=== PATIENT | male | born 2005 | race Caucasian/White ===

== ENCOUNTER 2024-10-14 18:59 | Inpatient (IN) | payer OTHER ==
[2024-10-14] MEDS ORDERED: DEXAMETHASONE SOD PHOSPHATE 10 MG/1 ML VIAL ONE (20:02)
[2024-10-14] MEDS ORDERED: ACETAMINOPHEN INJECTION 100 ML ONE ×2 (20:02→23:48)
[2024-10-14] MEDS: ACETAMINOPHEN 1000 MG/100 ML BAG IVPB ONE (20:08)
[2024-10-14] MEDS: SODIUM CHLORIDE 0.9% 500 ML INFUS.BAG IV ONE (20:08)
[2024-10-14] MEDS: DEXAMETHASONE SOD PHOSPHATE 10 MG/1 ML VIAL IVPUSH ONE (20:09)
[2024-10-14] MEDS: SODIUM CHLORIDE 1,000 ML IV STA (20:09)
[2024-10-14 20:26] LABS: VENOUS BASE EXCESS -4.8 mmol/L (-2-2); VENOUS O2 SATURATION 92.1 % (70-80); VENOUS PCO2 31.9 mmHg (38-52); VENOUS PH 7.388 (7.310-7.410)
[2024-10-14 20:28] LABS: BASO % 0.6 % (0-2.0); HEMATOCRIT 47.8 % (35.4-49); HEMOGLOBIN 16.6 GM/dL (11.7-16.9); LYMPH % 2.8 % (8-40); MCH 32.3 pg (25.7-33.7); MCHC 34.7 g/dl (32.0-35.9); MEAN PLT VOLUME 8.5 fl (7.5-11.1); MONO % 2.9 % (3.8-10.2); NEUT % 93.7 % (42.8-82.8); PLATELET COUNT 138 10^3/uL (134-434); RBC 5.13 M/mm3 (4.00-5.60); RDW 13.3 % (11.9-15.9); WHITE BLOOD COUNT 5.4 K/mm3 (4.0-10.0)
[2024-10-14 20:46] LABS: POTASSIUM 3.3 mmol/L (3.5-5.1)
[2024-10-14 20:49] LABS: ALBUMIN 3.7 g/dl (3.4-5.0); CALCIUM 8.1 mg/dL (8.5-10.1)
[2024-10-14 20:50] LABS: BLOOD UREA NITROGEN 19.1 mg/dL (7-18)
[2024-10-14 20:53] LABS: CREATININE 1.2 mg/dL (0.55-1.3)
[2024-10-14 20:54] LABS: BILIRUBIN,TOTAL 0.7 mg/dL (0.2-1); TOT PROT 7.4 g/dl (6.4-8.2)
[2024-10-14 20:58] LABS: LACTIC ACID 2.7 mmol/L (0.4-2.0)
[2024-10-14] MEDS ORDERED: CEFTRIAXONE 1 G/50 ML PREMIX 50 ML IVPB ONE (21:04)
[2024-10-14] MEDS ORDERED: AZITHROMYCIN IVPB 500 MG/250 ML BAG IVPB ONE (21:04)
[2024-10-14] MEDS: CEFTRIAXONE 1,000 MG in DEXTROSE 5%-WATER - 50 ML IVPB ONE (21:17)
[2024-10-14 21:31] LABS: ANISOCYTOSIS 1+; MACROCYTOSIS 0
[2024-10-14] MEDS: AZITHROMYCIN IVPB 500 MG in DEXTROSE 5%-WATER - 250 ML IVPB ONE (21:48)
[2024-10-14] MEDS ORDERED: POTASSIUM CHLORIDE ORAL LIQUID 20 MEQ/15 ML ONE (21:51)
[2024-10-14] MEDS ORDERED: KETOROLAC TROMETHAMINE 15 MG/ML VIAL ONE (21:51)
[2024-10-14] MEDS ORDERED: OSELTAMIVIR PHOSPHATE 75 MG CAPSULE ONE (21:51)
[2024-10-14] MEDS ORDERED: MAGNESIUM SULFATE IN WATER 2 GM/50 ML IVPB IVPB ONE (21:52)
[2024-10-14] MEDS: KETOROLAC TROMETHAMINE 15 MG/ML VIAL IVPUSH ONE (22:00)
[2024-10-14] MEDS: OSELTAMIVIR PHOSPHATE 75 MG CAPSULE PO ONE (22:00)
[2024-10-14] MEDS: MAGNESIUM SULF 50% (8.12 MEQ/2 ML-1 GM VIAL) IVPB ONE (22:00)
[2024-10-14] MEDS: POTASSIUM CHLORIDE ORAL LIQUID 20 MEQ/15 ML PO ONE (22:00)
[2024-10-14] MEDS ORDERED: LIDOCAINE VISCOUS 2% ORAL/TOP 15 ML UNIT-DOSE CUP ONE (23:48)
[2024-10-15] MEDS: ACETAMINOPHEN 1000 MG/100 ML BAG IVPB ONE (00:01)
[2024-10-15] MEDS: LIDOCAINE VISCOUS 2% ORAL/TOP 15 ML UNIT-DOSE CUP MM ONE (00:01)
[2024-10-15 00:25] LABS: HIV INTERPRETATION NEGATIVE (NEGATIVE)
[2024-10-15 01:20] LABS: LACTIC ACID 2.4 mmol/L (0.4-2.0)
[2024-10-15] MEDS: ACETAMINOPHEN 1000 MG/100 ML BAG IVPB PRN (02:30)
[2024-10-15] MEDS: LIDOCAINE VISCOUS 2% ORAL/TOP 15 ML UNIT-DOSE CUP MM PRN (02:30)
[2024-10-15] MEDS: SODIUM CHLORIDE 1,000 ML IV SCH (02:30)
[2024-10-15] MEDS: VANCOMYCIN 1 GM PREMIX (F) 1 GM/200 ML BAG IVPB SCH (03:19)
[2024-10-15] MEDS: HYDROCORTISONE SOD SUCCINATE 100 MG/2 ML VIAL IVPB SCH (03:19)
[2024-10-15] MEDS: KETOROLAC TROMETHAMINE 15 MG/ML VIAL IVPUSH PRN (05:23)
[2024-10-15] MEDS: PIPERACILLIN/TAZOB 4.5 GM 4.5 GM in DEXTROSE 5%-WATER 100 ML IVPB SCH (05:26)
[2024-10-15 06:08] LABS: MAGNESIUM 2.1 mg/dL (1.8-2.4)
[2024-10-15 08:03] LABS: HEMATOCRIT 46.3 % (35.4-49); MCH 32.4 pg (25.7-33.7); MCHC 34.6 g/dl (32.0-35.9); MEAN CELL VOLUME 93.4 fl (80-96); MEAN PLT VOLUME 8.7 fl (7.5-11.1); PLATELET COUNT 103 10^3/uL (134-434); RBC 4.96 M/mm3 (4.00-5.60); RDW 13.1 % (11.9-15.9); WHITE BLOOD COUNT 3.8 K/mm3 (4.0-10.0)
[2024-10-15 08:11] LABS: POTASSIUM 3.8 mmol/L (3.5-5.1)
[2024-10-15 08:13] LABS: EPI CELLS 17 /uL (0-25.1); HYALINE CASTS 1 /uL (0-3.1); PH,URINE 5.5 (5.0-8.0); URINE APPEARANCE CLEAR; URINE BACTERIA 8 /uL (0-1359); URINE BILIRUBIN NEGATIVE (NEGATIVE); URINE COLOR YELLOW; URINE GLUCOSE (UA) TRACE (NEGATIVE); URINE KETONE TRACE (NEGATIVE); URINE LEUK ESTERASE NEGATIVE (NEGATIVE); URINE NITRITE NEGATIVE (NEGATIVE); URINE PROTEIN 2+ (NEGATIVE); URINE RBC 70 /uL (0-23.9); URINE UROBILINOGEN 0.2 mg/dL (0.2-1.0); URINE WBC 52 /uL (0-25.8)
[2024-10-15 08:15] LABS: BLOOD UREA NITROGEN 17.8 mg/dL (7-18); CALCIUM 7.4 mg/dL (8.5-10.1)
[2024-10-15 08:16] LABS: MAGNESIUM 2.4 mg/dL (1.8-2.4)
[2024-10-15 08:19] LABS: ALBUMIN 2.7 g/dl (3.4-5.0); CREATININE 1.1 mg/dL (0.55-1.3); PHOSPHOROUS 2.6 mg/dL (2.5-4.9)
[2024-10-15 08:20] LABS: BILIRUBIN,TOTAL 0.8 mg/dL (0.2-1); TOT PROT 5.6 g/dl (6.4-8.2)
[2024-10-15 08:21] LABS: LACTIC ACID 2.8 mmol/L (0.4-2.0)
[2024-10-15 08:31] LABS: ALBUMIN 2.7 g/dl (3.4-5.0)
[2024-10-15 08:35] LABS: BILIRUBIN,DIRECT 0.3 mg/dL (0.0-0.2); BILIRUBIN,TOTAL 0.9 mg/dL (0.2-1); TOT PROT 5.7 g/dl (6.4-8.2)
[2024-10-15 09:42] LABS: ANISOCYTOSIS 0; MACROCYTOSIS 0
[2024-10-15] MEDS: ENOXAPARIN NA (PORCINE) 40 MG/0.4 ML DISP.SYRIN SQ SCH (10:42)
[2024-10-15] MEDS: OSELTAMIVIR PHOSPHATE 75 MG CAPSULE PO SCH (10:44)
[2024-10-15] MEDS: PHENOL 177 ML SPRAY BOTTLE MM PRN (10:46)
[2024-10-15] MEDS: MUPIROCIN 2% TOPICAL OINTMENT FOR DECOLONIZATION NS SCH (10:46)
[2024-10-15] MEDS: ALBUTEROL SO4 2.5/IPRATROPIUM 0.5 INH SOL 3 ML VIAL.NEB. NEB SCH (15:50)
[2024-10-15] MEDS: methylPREDNISolone NA SUCC 40 MG/1 ML VIAL IVPUSH SCH (19:07)
[2024-10-15] MEDS: AZITHROMYCIN IVPB 500 MG/250 ML BAG IVPB SCH (20:34)
[2024-10-15] MEDS: CHLORHEXIDINE GLUCONATE 4% CLEANSER FOR DECOLONIZATION TP SCH (22:30)
[2024-10-16 08:30] LABS: HEMATOCRIT 38.5 % (35.4-49); HEMOGLOBIN 13.7 GM/dL (11.7-16.9); MCH 33.4 pg (25.7-33.7); MCHC 35.7 g/dl (32.0-35.9); MEAN CELL VOLUME 93.5 fl (80-96); MEAN PLT VOLUME 8.3 fl (7.5-11.1); PLATELET COUNT 96 10^3/uL (134-434); RBC 4.12 M/mm3 (4.00-5.60); RDW 13.6 % (11.9-15.9); WHITE BLOOD COUNT 9.3 K/mm3 (4.0-10.0)
[2024-10-16 08:41] LABS: POTASSIUM 4.1 mmol/L (3.5-5.1)
[2024-10-16 08:58] LABS: ALBUMIN 2.2 g/dl (3.4-5.0); CALCIUM 7.8 mg/dL (8.5-10.1)
[2024-10-16 08:59] LABS: BILIRUBIN,TOTAL 0.7 mg/dL (0.2-1); BLOOD UREA NITROGEN 15.8 mg/dL (7-18); MAGNESIUM 2.6 mg/dL (1.8-2.4); TOT PROT 5.2 g/dl (6.4-8.2)
[2024-10-16 09:02] LABS: CREATININE 0.9 mg/dL (0.55-1.3)
[2024-10-16] MEDS: KETOROLAC TROMETHAMINE 15 MG/ML VIAL IVPUSH PRN (09:25)
[2024-10-16] MEDS: ACETAMINOPHEN 1000 MG/100 ML BAG IVPB PRN (20:51)
[2024-10-16] MEDS: BENZOCAINE/MENTH/CETYLPYRD CL 1 EACH LOZENGE MM PRN (20:52)
[2024-10-16] MEDS: MELATONIN 5 MG TABLETS PO ONE (22:32)
[2024-10-17] MEDS: PIPERACILLIN/TAZOB 4.5 GM 4.5 GM/100 ML BAG IVPB SCH (01:03)
[2024-10-17] MEDS: guaiFENesin/D-METHORPHAN HB 10 ML UNIT-DOSE CUPS PO PRN (01:03)
[2024-10-17] MEDS: VANCOMYCIN 1 GM PREMIX (F) 1 GM/200 ML BAG IVPB SCH (02:39)
[2024-10-17 08:10] LABS: HEMOGLOBIN 12.3 GM/dL (11.7-16.9); MCH 31.8 pg (25.7-33.7); MCHC 33.2 g/dl (32.0-35.9); MEAN CELL VOLUME 95.8 fl (80-96); MEAN PLT VOLUME 8.1 fl (7.5-11.1); PLATELET COUNT 89 10^3/uL (134-434); RBC 3.86 M/mm3 (4.00-5.60); RDW 13.6 % (11.9-15.9); WHITE BLOOD COUNT 12.1 K/mm3 (4.0-10.0)
[2024-10-17 08:38] LABS: ALBUMIN 2.1 g/dl (3.4-5.0); CALCIUM 7.8 mg/dL (8.5-10.1)
[2024-10-17 08:40] LABS: MAGNESIUM 2.7 mg/dL (1.8-2.4)
[2024-10-17 08:42] LABS: BILIRUBIN,TOTAL 0.6 mg/dL (0.2-1); CREATININE 0.8 mg/dL (0.55-1.3); TOT PROT 5.3 g/dl (6.4-8.2)
[2024-10-17] MEDS: PANTOPRAZOLE 40 MG TABLET PO SCH (09:10)
[2024-10-17 09:26] LABS: ANISOCYTOSIS 0; MACROCYTOSIS 0
[2024-10-17] MEDS: DEXTROSE 5%-LACTATED RINGERS 1,000 ML IV SCH (14:33)
[2024-10-17] MEDS: MELATONIN 5 MG TABLETS PO PRN (21:32)
[2024-10-17] MEDS: FAMOTIDINE 10 MG TABLET PO ONE (21:32)
[2024-10-18 08:40] LABS: HEMATOCRIT 36.2 % (35.4-49); HEMOGLOBIN 12.4 GM/dL (11.7-16.9); MCH 32.3 pg (25.7-33.7); MCHC 34.4 g/dl (32.0-35.9); MEAN CELL VOLUME 93.9 fl (80-96); MEAN PLT VOLUME 8.4 fl (7.5-11.1); PLATELET COUNT 100 10^3/uL (134-434); RBC 3.85 M/mm3 (4.00-5.60); RDW 13.4 % (11.9-15.9); WHITE BLOOD COUNT 12.8 K/mm3 (4.0-10.0)
[2024-10-18 09:31] LABS: ALBUMIN 2.1 g/dl (3.4-5.0); BLOOD UREA NITROGEN 23.8 mg/dL (7-18); MAGNESIUM 2.5 mg/dL (1.8-2.4)
[2024-10-18 09:34] LABS: CREATININE 0.7 mg/dL (0.55-1.3)
[2024-10-18 09:35] LABS: BILIRUBIN,TOTAL 0.5 mg/dL (0.2-1); TOT PROT 5.4 g/dl (6.4-8.2)
[2024-10-18 09:36] LABS: ANISOCYTOSIS 0; MACROCYTOSIS 0
[2024-10-18] MEDS: MULTIVITAMINS (DAILY MVI) TABLET (FP) PO SCH (12:44)
[2024-10-19 07:27] LABS: HEMATOCRIT 37.1 % (35.4-49); HEMOGLOBIN 12.3 GM/dL (11.7-16.9); MCH 31.8 pg (25.7-33.7); MCHC 33.1 g/dl (32.0-35.9); MEAN CELL VOLUME 96.1 fl (80-96); MEAN PLT VOLUME 8.8 fl (7.5-11.1); PLATELET COUNT 137 10^3/uL (134-434); RBC 3.86 M/mm3 (4.00-5.60); RDW 13.8 % (11.9-15.9); WHITE BLOOD COUNT 11.2 K/mm3 (4.0-10.0)
[2024-10-19 07:49] LABS: BLOOD UREA NITROGEN 23.8 mg/dL (7-18)
[2024-10-19 07:51] LABS: CREATININE 0.7 mg/dL (0.55-1.3)
[2024-10-19 07:53] LABS: BILIRUBIN,TOTAL 0.5 mg/dL (0.2-1); TOT PROT 5.6 g/dl (6.4-8.2)
[2024-10-19 08:57] LABS: ANISOCYTOSIS 0; HELMET CELLS 0; HOWELL-JOLLY BODIES 0; MACROCYTOSIS 0; OVALOCYTE 0; ROULEAU 0; SICKELED CELLS 0; TARGET CELLS 0; TEAR DROP CELLS 0; TOXIC GRANULATION 0
[2024-10-19] MEDS ORDERED: PHENOL 177 ML SPRAY BOTTLE MM PRN (09:09)
[2024-10-19] MEDS: OSELTAMIVIR PHOSPHATE 75 MG CAPSULE PO SCH (10:19)
[2024-10-19] MEDS: ENOXAPARIN NA (PORCINE) 40 MG/0.4 ML DISP.SYRIN SQ SCH (10:41)
[2024-10-19] MEDS: PANTOPRAZOLE 40 MG TABLET PO SCH (10:41)
[2024-10-19] MEDS: PIPERACILLIN/TAZOB 4.5 GM 4.5 GM/100 ML BAG IVPB SCH (10:42)
[2024-10-19] MEDS: methylPREDNISolone NA SUCC 40 MG/1 ML VIAL IVPUSH SCH (10:42)
[2024-10-19] MEDS: ALBUTEROL SO4 2.5/IPRATROPIUM 0.5 INH SOL 3 ML VIAL.NEB. NEB SCH (11:30)
[2024-10-19 13:25] VITALS: BMI 20.9
[2024-10-19] MEDS: guaiFENesin/D-METHORPHAN HB 10 ML UNIT-DOSE CUPS PO PRN (18:19)
[2024-10-19] MEDS: KETOROLAC TROMETHAMINE 15 MG/ML VIAL IVPUSH PRN (18:19)
[2024-10-19] MEDS: CHLORHEXIDINE GLUCONATE 4% CLEANSER FOR DECOLONIZATION TP SCH (21:36)
[2024-10-20] MEDS: BENZOCAINE/MENTH/CETYLPYRD CL 1 EACH LOZENGE MM PRN (04:36)
[2024-10-20] MEDS: LIDOCAINE VISCOUS 2% ORAL/TOP 15 ML UNIT-DOSE CUP MM PRN (05:37)
[2024-10-20 07:32] LABS: HEMOGLOBIN 12.9 GM/dL (11.7-16.9); MCH 31.4 pg (25.7-33.7); MEAN CELL VOLUME 95.2 fl (80-96); MEAN PLT VOLUME 8.5 fl (7.5-11.1); PLATELET COUNT 222 10^3/uL (134-434); RBC 4.09 M/mm3 (4.00-5.60); RDW 13.4 % (11.9-15.9); WHITE BLOOD COUNT 13.6 K/mm3 (4.0-10.0)
[2024-10-20 08:06] LABS: POTASSIUM 3.9 mmol/L (3.5-5.1)
[2024-10-20 08:34] LABS: ALBUMIN 2.1 g/dl (3.4-5.0); BLOOD UREA NITROGEN 21.3 mg/dL (7-18); CALCIUM 8.2 mg/dL (8.5-10.1)
[2024-10-20 08:37] LABS: CREATININE 0.7 mg/dL (0.55-1.3)
[2024-10-20 08:39] LABS: BILIRUBIN,TOTAL 0.6 mg/dL (0.2-1); TOT PROT 5.9 g/dl (6.4-8.2)
[2024-10-20 08:53] LABS: ANISOCYTOSIS 0; MACROCYTOSIS 0
[2024-10-20] MEDS: guaiFENesin 600 MG TABLET.ER (FP) PO SCH (09:08)
[2024-10-21 07:24] LABS: HEMATOCRIT 41.2 % (35.4-49); HEMOGLOBIN 13.9 GM/dL (11.7-16.9); MCHC 33.8 g/dl (32.0-35.9); MEAN CELL VOLUME 94.8 fl (80-96); MEAN PLT VOLUME 7.9 fl (7.5-11.1); PLATELET COUNT 311 10^3/uL (134-434); RBC 4.35 M/mm3 (4.00-5.60); RDW 13.4 % (11.9-15.9); WHITE BLOOD COUNT 17.1 K/mm3 (4.0-10.0)
[2024-10-21 07:39] LABS: POTASSIUM 3.6 mmol/L (3.5-5.1)
[2024-10-21 07:44] LABS: CALCIUM 8.4 mg/dL (8.5-10.1)
[2024-10-21 07:45] LABS: ALBUMIN 2.2 g/dl (3.4-5.0); BLOOD UREA NITROGEN 17.4 mg/dL (7-18)
[2024-10-21 07:49] LABS: BILIRUBIN,TOTAL 0.7 mg/dL (0.2-1); TOT PROT 6.5 g/dl (6.4-8.2)
[2024-10-21 07:50] LABS: CREATININE 0.7 mg/dL (0.55-1.3)
[2024-10-21 08:41] LABS: ANISOCYTOSIS 0; MACROCYTOSIS 0
[2024-10-21] MEDS: ACETAMINOPHEN 325 MG TABLET (FP) PO PRN (09:58)
[2024-10-22 06:46] LABS: HEMATOCRIT 41.3 % (35.4-49); HEMOGLOBIN 13.8 GM/dL (11.7-16.9); MCH 31.7 pg (25.7-33.7); MCHC 33.3 g/dl (32.0-35.9); MEAN CELL VOLUME 95.2 fl (80-96); MEAN PLT VOLUME 7.9 fl (7.5-11.1); PLATELET COUNT 355 10^3/uL (134-434); RBC 4.34 M/mm3 (4.00-5.60); RDW 13.3 % (11.9-15.9); WHITE BLOOD COUNT 19.3 K/mm3 (4.0-10.0)
[2024-10-22 07:05] LABS: POTASSIUM 3.8 mmol/L (3.5-5.1)
[2024-10-22 07:06] LABS: CALCIUM 8.3 mg/dL (8.5-10.1)
[2024-10-22 07:07] LABS: ALBUMIN 2.4 g/dl (3.4-5.0)
[2024-10-22 07:10] LABS: CREATININE 0.7 mg/dL (0.55-1.3)
[2024-10-22 07:12] LABS: BILIRUBIN,TOTAL 0.6 mg/dL (0.2-1)
[2024-10-22 09:21] LABS: ANISOCYTOSIS 0; HELMET CELLS 0; HOWELL-JOLLY BODIES 0; MACROCYTOSIS 0; OVALOCYTE 0; ROULEAU 0; SICKELED CELLS 0; TARGET CELLS 0; TEAR DROP CELLS 0; TOXIC GRANULATION 0
[2024-10-22] MEDS: predniSONE 10 MG TABLET (UD) PO SCH (10:15)
[2024-10-22] MEDS ORDERED: BENZOCAINE/MENTH/CETYLPYRD CL 1 EACH LOZENGE MM PRN (16:33)
[2024-10-22] MEDS ORDERED: ACETAMINOPHEN 325 MG TABLET (FP) PO PRN (16:33)
[2024-10-22] MEDS ORDERED: PHENOL 177 ML SPRAY BOTTLE MM PRN (16:33)
[2024-10-22] MEDS ORDERED: LIDOCAINE VISCOUS 2% ORAL/TOP 15 ML UNIT-DOSE CUP MM PRN (16:33)
[2024-10-22] MEDS: PIPERACILLIN/TAZOB 4.5 GM 4.5 GM/100 ML BAG IVPB SCH (17:55)
[2024-10-22] MEDS: ALBUTEROL SO4 2.5/IPRATROPIUM 0.5 INH SOL 3 ML VIAL.NEB. NEB SCH (20:01)
[2024-10-22] MEDS ORDERED: CHLORHEXIDINE GLUCONATE 4% CLEANSER FOR DECOLONIZATION TP SCH (22:00)
[2024-10-22] MEDS: guaiFENesin 600 MG TABLET.ER (FP) PO SCH (22:11)
[2024-10-22] MEDS: guaiFENesin/D-METHORPHAN HB 10 ML UNIT-DOSE CUPS PO PRN (22:11)
[2024-10-22] MEDS: MELATONIN 5 MG TABLETS PO PRN (22:11)
[2024-10-23 07:48] LABS: HEMATOCRIT 40.6 % (35.4-49); HEMOGLOBIN 13.4 GM/dL (11.7-16.9); MCH 31.6 pg (25.7-33.7); MEAN CELL VOLUME 95.8 fl (80-96); MEAN PLT VOLUME 7.4 fl (7.5-11.1); PLATELET COUNT 363 10^3/uL (134-434); RBC 4.24 M/mm3 (4.00-5.60); RDW 13.4 % (11.9-15.9); WHITE BLOOD COUNT 22.4 K/mm3 (4.0-10.0)
[2024-10-23 07:59] LABS: POTASSIUM 4.3 mmol/L (3.5-5.1)
[2024-10-23 08:04] LABS: CALCIUM 8.6 mg/dL (8.5-10.1)
[2024-10-23 08:05] LABS: ALBUMIN 2.3 g/dl (3.4-5.0); BLOOD UREA NITROGEN 12.2 mg/dL (7-18)
[2024-10-23 08:08] LABS: CREATININE 0.7 mg/dL (0.55-1.3)
[2024-10-23 08:09] LABS: BILIRUBIN,TOTAL 0.8 mg/dL (0.2-1)
[2024-10-23 08:10] LABS: TOT PROT 6.8 g/dl (6.4-8.2)
[2024-10-23] MEDS: PANTOPRAZOLE 40 MG TABLET PO SCH (10:04)
[2024-10-23] MEDS: ENOXAPARIN NA (PORCINE) 40 MG/0.4 ML DISP.SYRIN SQ SCH (10:04)
[2024-10-23] MEDS: MULTIVITAMINS (DAILY MVI) TABLET (FP) PO SCH (10:04)
[2024-10-23 10:24] LABS: ANISOCYTOSIS 0; HELMET CELLS 0; HOWELL-JOLLY BODIES 0; MACROCYTOSIS 0; OVALOCYTE 0; ROULEAU 0; SICKELED CELLS 0; TARGET CELLS 0; TEAR DROP CELLS 0; TOXIC GRANULATION 0
[2024-10-23 16:09] VITALS: PULSE 101; RESP 18; TEMP 98.8
[2024-10-23] MEDS: AMOX TR/POT CLAV 500MG/125MG TABLETS (FP) PO SCH (17:46)
[2024-10-23 17:58] VITALS: BP 125/63
== END 2024-10-23 19:13 | disposition home or self-care (01) | DRG 720 ==
LOC: JER 18:59 → JERBED 21:38 → JICU 10-15 01:23 → J4S 10-17 21:17 → J2W 10-18 23:26 → J8W 10-22 13:38
PROVIDERS: ADMIT Internal Medicine Pulmonary Disease; ATTEND Nurse Practitioner Family
DX: A41.9 Sepsis, unspecified organism (principal); D69.6 Thrombocytopenia, unspecified; E87.20 Acidosis, unspecified; J18.9 Pneumonia, unspecified organism; J96.01 Acute respiratory failure with hypoxia; J93.9 Pneumothorax, unspecified; R04.2 Hemoptysis; G47.00 Insomnia, unspecified; J02.0 Streptococcal pharyngitis; J10.1 Influenza due to other identified influenza virus with other respiratory manifestations; R07.81 Pleurodynia; R73.9 Hyperglycemia, unspecified; R65.20 Severe sepsis without septic shock
CPT/HCPCS: 0241U-QW; 36415; 71045-TC-FY; 71275-TC; 74160-TC; 76775-TC; 80053; 80076; 81003; 82308; 82803; 83605; 83735; 84100; 84484; 85025; 86140; 86480; 87040; 87070; 87081; 87205; 87389; 87481; 87522; 87633; 87651; 87899; 93005; 93010; 94010; 94640; 97116-GP; 97162-GP; 99285-25; J0131; J1100; Q9967